=== PATIENT | female | born 1950 | race Caucasian/White ===

== ENCOUNTER 2017-11-26 09:37 | Outpatient (CLI) | payer OTHER ==
[~2017-11-26 09:37] MED LIST: ANAPROX275 MG PO
== END 2017-11-26 16:56 | disposition home or self-care (01) ==
LOC: NUCLEAR 09:37
DX: I50.89 Other heart failure (principal)

== ENCOUNTER 2023-02-27 12:42 | Emergency (ER) | payer OTHER ==
[~2023-02-27] VITALS: Ht 162.6 cm; Wt 140.6 kg
[2023-02-27] MEDS ORDERED: JANUVIA100 MG PO (12:58)
[2023-02-27] MEDS ORDERED: YUPELRI175 MCG/3 (12:59)
[2023-02-27] MEDS ORDERED: SINGULAIR10 MG (12:59)
[2023-02-27] MEDS ORDERED: LIPITOR20 MG PO (13:00)
[2023-02-27] MEDS ORDERED: DAFLONEX-XL 11300 MG (13:01)
[2023-02-27] MEDS ORDERED: TRAZODONE HCL50 MG PO (13:02)
[2023-02-27 14:10] LABS: HEMOGLOBIN 12.3 g/dL (12.0-15.00); MEAN CORPUSCULAR HEMOGLOBIN 28.8 pg (27.00-32.0); MEAN CORPUSCULAR HGB CONC 33.1 g/dl (32.0-36.0); PLATELET COUNT 187 K/uL (150-450); RED BLOOD COUNT 4.26 M/uL (4.00-6.00); RED CELL DISTRIBUTION WIDTH 15.2 % (11.5-14.5)
[2023-02-27 14:40] LABS: INR 1.07; PARTIAL THROMBOPLASTIN TIME 21.1 SECONDS (22.0-34.0); PROTHROMBIN TIME 11.2 SECONDS (9.0-11.5)
[2023-02-27 14:55] LABS: ALBUMIN 3.5 gm/dL (3.4-5.0); BILIRUBIN TOTAL 0.34 mg/dL (0.3-1.2); CALCIUM 9.8 mg/dL (8.5-10.1); CREATININE SERUM 0.73 mg/dL (0.55-1.02); GFR 78.59; GLOBULINA 4.3 G/DL (2.4-3.5); POTASSIUM 3.98 mEq/L (3.5-5.1); TOTAL PROTEIN 7.8 gm/dL (6.4-8.2)
[2023-02-27 15:19] LABS: ABG PH 7.425 (7.35-7.45); ABG PO2 60.8 mmHg (80-100); ABG pCO2 44.6 mmHg (35-45)
[2023-02-27 15:20] LABS: BASE EXCESS 3.6 mmol/l; BICARBONATE 28.6 mmol/l (23-25); SaO2 91.8 %; allen test SATISFACTORY; o2 21 %; puncture site RADIAL RIGHT
== END 2023-02-27 22:35 | disposition home or self-care (01) ==
LOC: ER 12:42
PROVIDERS: Emergency Medicine
DX: J44.89 Other specified chronic obstructive pulmonary disease (principal); D72.829 Elevated white blood cell count, unspecified; I10 Essential (primary) hypertension; E11.9 Type 2 diabetes mellitus without complications; Z79.84 Long term (current) use of oral hypoglycemic drugs; E66.01 Morbid (severe) obesity due to excess calories; Z88.2 Allergy status to sulfonamides; Z88.8 Allergy status to other drugs, medicaments and biological substances; Z20.822 Contact with and (suspected) exposure to COVID-19
CPT/HCPCS: 36415; 82803; 93005; 94640; 96365; 99284; J0696